=== PATIENT | male | born 1955 | race Caucasian/White ===

== ENCOUNTER 2021-09-01 12:37 | Emergency (ER) | payer SELFPAY ==
[~2021-09-01] VITALS: Ht 180.3 cm; Wt 97.7 kg
[2021-09-01 12:43] VITALS: TEMP 98.2
[2021-09-01] MEDS ORDERED: HCTZ 25MG TAB25 MG PO (12:47)
[2021-09-01] MEDS ORDERED: TOPROL XL 25MG25 MG PO (12:48)
[2021-09-01] MEDS ORDERED: PRILOSEC 20MG20 MG PO (12:48)
[2021-09-01] MEDS ORDERED: COZAAR100 MG PO (12:48)
[2021-09-01] MEDS ORDERED: ZOCOR 40MG40 MG PO (12:49)
[2021-09-01 17:10] VITALS: BP 182/93; PULSE 78
== END 2021-09-01 17:10 | disposition home or self-care (01) ==
LOC: COL.ER 12:37
DX: S51.011A Laceration without foreign body of right elbow, initial encounter (principal); S60.512A Abrasion of left hand, initial encounter; S60.511A Abrasion of right hand, initial encounter; S80.212A Abrasion, left knee, initial encounter; V29.40XA Motorcycle driver injured in collision with unspecified motor vehicles in traffic accident, initial encounter; Y92.410 Unspecified street and highway as the place of occurrence of the external cause